=== PATIENT | female | born 1990 | race American Indian/Alaskan Native ===

== ENCOUNTER 2016-09-26 03:26 | Emergency (ER) | payer OTHER ==
[2016-09-26] MEDS ORDERED: MOTRIN PO ONE ×3 (04:01→13:06)
[2016-09-26 04:14] LABS: Basophils % (Auto) 0.5 % (0.0-1.8); Eosinophils % (Auto) 0.7 % (0.0-4.3); Hematocrit 38.2 % (30.3-42.9); Hemoglobin 12.5 gm/dl (10.1-14.3); Mean Corpuscular HGB Conc 33 % (30-34); Mean Corpuscular Hemoglobin 28 pg (28-32); Mean Corpuscular Volume 84 fl (79-97); Platelet Count 282 K/mm3 (140-440); Red Blood Count 4.55 M/mm3 (3.65-5.03); Red Cell Distribution Width 15.2 % (13.2-15.2); White Blood Count 6.6 K/mm3 (4.5-11.0)
[2016-09-26 04:32] LABS: Alanine Aminotransferase 11 units/L (7-56); Albumin 4.1 g/dL (3.9-5); Albumin/Globulin Ratio 1.2 %; Alkaline Phosphatase 57 units/L (35-129); Anion Gap 17 mmol/L; Blood Urea Nitrogen 10 mg/dL (7-17); Calcium 9.2 mg/dL (8.4-10.2); Carbon Dioxide 22 mmol/L (22-30); Chloride 102.8 mmol/L (98-107); Glucose 93 mg/dL (65-100); Lipase 19 units/L (13-60); Sodium 138 mmol/L (137-145); Total Protein 7.5 g/dL (6.3-8.2)
[2016-09-26 08:06] LABS: Bilirubin,Urine NEG (Negative); Blood,Urine LG (Negative); Ketones,Urine 20 mg/dL (Negative); Leukocyte Esterase,Urine NEG (Negative); Nitrite,Urine NEG (Negative); Urobilinogen,Urine < 2.0 mg/dL (<2.0)
--- NOTE | 2016-09-26 11:10 | Emergency Department Report ---
HPI - General Chief Complaint: Abdominal Pain Time Seen by Provider: 09/26/16 10:54 - HPI HPI: This is a 25-year-old Afro-[place] female presents to the emergency department with complaint of having short, sharp, intermittent pelvic pains throughout last night. It occurred about 5 times and resolved rounds examined this morning. He was given some Motrin here but prior to presentation she did not take anything for her symptoms. She denies any past medical history. No recent travel or sick contacts at home. Her primary care physician is Dr. Tomer Swartz. She has no CASH MANAGEMENT SPECIALIST cannot currently the name. She denies any vaginal discharge. She has some vaginal bleeding secondary to her menstrual cycle but admits it is slightly more than usual. She denies any fever , dysuria, vaginal discharge, back pain, nausea or vomiting. ED Past Medical Hx - Past Medical History Previous Medical History?: No - Surgical History Past Surgical History?: No - Social History Smoking Status: Never Smoker Substance Use Type: None - Medications Home Medications: Home Medications Medication Instructions Recorded Confirmed Last Taken Type HYDROcodone/APAP 5-325 [[place] 1 each PO Q6HR PRN #10 tablet 09/26/16 Unknown Rx 5/325] ED Review of Systems ROS: Stated complaint: SHARP STOMACH PAIN Other details as noted in HPI Comment: All other systems reviewed and negative Constitutional: denies: chills, fever Eyes: denies: eye pain, eye discharge, vision change ENT: denies: ear pain, throat pain Respiratory: denies: cough, shortness of breath, wheezing Cardiovascular: denies: chest pain, palpitations Gastrointestinal: abdominal pain (pelvic pain). denies: nausea, vomiting Genitourinary: denies: dysuria, discharge Musculoskeletal: denies: back pain, joint swelling, arthralgia Skin: denies: rash, lesions Neurological: denies: headache, weakness, paresthesias Physical Exam - Physical Exam Vital Signs: Vital Signs 09/26/16 09/26/16 03:27 11:03 Temperature 98.4 F Pulse Rate 97 H 68 Respiratory 18 20 Rate Blood Pressure 136/82 122/62 [Right] O2 Sat by Pulse 99 Oximetry Physical Exam: GENERAL: The patient is well-developed well-nourished. HEENT: Normocephalic. Atraumatic. Extraocular motions are intact. Patient has moist mucous membranes. Pupils equal reactive to light bilaterally. NECK: Supple. Trachea is midline. CHEST/LUNGS: Clear to auscultation. There is no respiratory distress noted. HEART/CARDIOVASCULAR: Regular. There is no tachycardia. There is no gallop rub or murmur. ABDOMEN: Abdomen is soft, nontender. Patient has normal bowel sounds. There is no abdominal distention. SKIN: Skin is warm and dry. NEURO: The patient is awake, alert, and oriented. The patient is cooperative. The patient has no focal neurologic deficits. The patient has normal speech. MUSCULOSKELETAL: There is no tenderness or deformity. There is no limitation range of motion. There is no evidence of acute injury. ED Course Vital Signs 09/26/16 09/26/16 03:27 11:03 Temperature 98.4 F Pulse Rate 97 H 68 Respiratory 18 20 Rate Blood Pressure 136/82 122/62 [Right] O2 Sat by Pulse 99 Oximetry ED Medical Decision Making - Lab Data Result diagrams: 09/26/16 03:56 09/26/16 03:56 - Radiology Data Radiology results: report reviewed Transvaginal/pelvic ultrasound does not show any signs of ovarian torsion, any fibroids or masses. There is a area consistent with a nabothian cyst within the endometrial canal. - Medical Decision Making 25 year old female presents with multiple short sharp intermittent pelvic pains earlier this morning and late last night that has since resolved. There is no discharge or dysuria and the patient is currently having her menstrual cycle. Labs are unremarkable including no significant urinary tract infection and the patient is not . Ultrasound shows a nabothian cyst but otherwise no other significant process or etiology of the patient's symptoms. She has both a primary care physician and an SEED SORTER for follow-up. She was given pain medication. She'll return to the ER if any worsening of her symptoms or any acute distress. - Differential Diagnosis torsion, fibroids, , UTI, malignancy Critical Care Time: No Critical care attestation.: If time is entered above; I have spent that time in minutes in the direct care of this critically ill patient, excluding procedure time. ED Disposition Clinical Impression: Pelvic pain, Nabothian cyst Disposition: DC-01 TO HOME OR SELFCARE Is pt being admited?: No Condition: Stable Instructions: Abdominal Pain (ED), Pelvic Ultrasound (GEN) Additional Instructions: Please follow-up with your SEED SORTER and primary care physician. Return to the emergency department with any worsening of your symptoms or any acute distress. You've been prescribed a medication that is sedating. Therefore this medication cannot be mixed with alcohol, or taken prior to driving, working, or being responsible for children. Prescriptions: HYDROcodone/APAP 5-325 [[place] 5/325] 1 each PO Q6HR PRN #10 tablet PRN Reason: Pain Referrals: PRIMARY CARE, [Primary Care Provider] - [facility] Time of Disposition: 13:01
--- NOTE | 2016-09-26 12:27 | Ultrasound Report ---
Pelvic and transvaginal sonography: History: Pelvic pain. Findings: Uterus measures 8 x 2.6 x 4.8 cm. Endometrium thickness is 8 mm. No mass. No fluid in the endometrium. Right ovary 2.3 x 1.5 x 2.1 cm. No mass. Left ovary 2.3 x 1.4 x 1.5 cm. No mass. Incidentally noted nabothian cyst in the cervix. Impression: No mass in the uterus. No mass of the adnexa. Nabothian cyst in the cervix.
[2016-09-26 13:17] VITALS: BP 119/79
== END 2016-09-26 13:15 | disposition home or self-care (01) ==
LOC: ED 03:26
DX: N88.8 Other specified noninflammatory disorders of cervix uteri (principal); R10.2 Pelvic and perineal pain
CPT/HCPCS: 36415; 76830; 80053; 81001; 83690; 84703; 85025; 93975

== ENCOUNTER 2018-03-25 11:04 | Emergency (ER) | payer OTHER ==
--- NOTE | 2018-03-25 13:22 | Emergency Department Report ---
Minor Respiratory - HPI Chief Complaint: Upper Respiratory Infection Stated Complaint: COUGH/HEADACHE/TAWNY Time Seen by Provider: 03/25/18 11:08 Duration: 3 Days Pain Location: Throat, Nose, Chest Severity: moderate Minor Respiratory: Yes Rhinorrhea, Yes Sore Throat, Yes Able to Tolerate Fluids, Yes Cough, Yes Sick Contacts, Yes Fever, No Ear Pain, No Hemoptysis, No Chest Pain, No Shortness of Breath Other History: Annika is a healthy 27-year-old who presents with flulike symptoms of cough yellow mucus production and bodyaches fever chills headache. Multiple sick contacts at home. ED Review of Systems ROS: Stated complaint: COUGH/HEADACHE/TAWNY Other details as noted in HPI Constitutional: chills, fever, malaise ENT: throat pain Respiratory: cough. denies: shortness of breath, wheezing Cardiovascular: denies: chest pain Gastrointestinal: denies: abdominal pain, nausea, vomiting Musculoskeletal: myalgia Neurological: headache ED Past Medical Hx - Past Medical History Previous Medical History?: No - Surgical History Past Surgical History?: No - Social History Smoking Status: Never Smoker Substance Use Type: None - Medications Home Medications: Home Medications Medication Instructions Recorded Confirmed Last Taken Type HYDROcodone/APAP 5-325 [[place] 1 each PO Q6HR PRN #10 tablet 09/26/16 Unknown Rx 5/325] Acetaminophen/Codeine [Tylenol 2 tab PO Q6H PRN #16 tab 03/25/18 Unknown Rx /Codeine # 3 tab] Oseltamivir [Tamiflu] 75 mg PO BID 5 Days #10 cap 03/25/18 Unknown Rx Minor Respiratory Exam - Exam General: Vital signs noted. No distress. Alert and acting appropriately. HEENT: Yes Moist Mucous Membranes, Yes Rhinorrhea, No Pharyngeal Erythema, No Pharyngeal Exudates, No Conjuctival Injection Neck: Yes Supple, No Adenopathy Lungs: Yes Good Air Exchange, No Wheezes, No Ronchi, No Stridor, No Cough, No Labored Respirations, No Retractions, No Use of Accessory Muscles, No Other Abnormal Lung Sounds Heart: Yes Regular, No Murmur Abdomen: Yes Normal Bowel Sounds, No Tenderness, No Peritoneal Signs Skin: No Rash, No Edema Neurologic: Alert and oriented, no deficits. Musculoskeletal: Unremarkable. ED Course Vital Signs 03/25/18 11:08 Temperature 98 F Pulse Rate 120 H Respiratory 20 Rate Blood Pressure 143/100 O2 Sat by Pulse 97 Oximetry ED Medical Decision Making - Medical Decision Making Clinical diagnosis influenza prescription provided for Tamiflu and Tylenol No. 3 Critical care attestation.: If time is entered above; I have spent that time in minutes in the direct care of this critically ill patient, excluding procedure time. ED Disposition Clinical Impression: Influenza Disposition: DC-01 TO HOME OR SELFCARE Is pt being admited?: No Does the pt Need Aspirin: No Condition: Stable Instructions: Influenza (ED) Prescriptions: Acetaminophen/Codeine [Tylenol /Codeine # 3 tab] 2 tab PO Q6H PRN #16 tab PRN Reason: cough, pain Oseltamivir [Tamiflu] 75 mg PO BID 5 Days #10 cap Forms: Work/School Release Form(ED)
== END 2018-03-25 14:07 | disposition home or self-care (01) ==
LOC: ED 11:04
DX: J11.1 Influenza due to unidentified influenza virus with other respiratory manifestations (principal)
CPT/HCPCS: 99282